=== PATIENT | male | born 1960 | race Caucasian/White ===

== ENCOUNTER 2018-05-23 10:54 | Emergency (ER) | payer MEDICAID ==
[~2018-05-23] VITALS: Ht 177.8 cm; Wt 113.6 kg
[~2018-05-23 10:54] MED LIST: CLONAZEP ODT1 MG PO; HYTRIN2 MG PO; INDERAL60 MG PO; KLONOPIN2 MG PO; LISINOPRIL10 MG PO; LORTAB 1010 MG PO; NIFEDIPINE30 MG PO; PROCARDIA XL30 MG PO; REMERON45 MG PO; SEROQUEL25 MG PO; TRAMADOL HCL E100 M2 PO; TRAMADOL HCL100 MG PO; TRAMADOL HCL50 MG PO; VITAMIN D35000 UNIT PO; XANAX0.5 MG PO; ZANAFLEX4 M2 PO
[2018-05-23] MEDS ORDERED: MELOXICAM7.5 MG PO (11:31)
[2018-05-23 11:48] LABS: URINE BILIRUBIN - DIPSTICK NEGATIVE (NEGATIVE); URINE BLOOD DIPSTICK NEGATIVE (NEGATIVE); URINE COLOR YELLOW; URINE GLUCOSE - DIPSTICK NEGATIVE (NEGATIVE); URINE KETONE NEGATIVE (NEGATIVE); URINE LEUK ESTERASE NEGATIVE (NEGATIVE); URINE NITRITE - DIPSTICK NEGATIVE (Negative); URINE PH 6.5 (4.5-8.0); URINE PROTEIN - DIPSTICK NEGATIVE (NEG-TRACE); URINE SPECIFIC GRAVITY 1.015
[2018-05-23 11:51] LABS: HEMOGLOBIN 15.9 g/dl (14.0-18.0); IMMATURE GRANULOCYTES 0.3 % (0.0-5.0); MEAN CELL VOLUME 100.2 fL CALC (80.0-100.0); MEAN CORPUSCULAR HGB 33.9 pG CALC (26.0-32.0); MEAN CORPUSCULAR HGB CONC 33.8 g/L CALC (32.0-36.0); NEUT# 6.21 thou/uL (1.82-7.42); RED BLOOD COUNT 4.69 mill/uL (4.70-6.10); RED CELL DISTRI WIDTH 13.2 % (11.5-15.5)
[2018-05-23 11:52] LABS: BARBITURATES NEGATIVE (NEGATIVE); COCAINE NEGATIVE (NEGATIVE); METHADONE NEGATIVE (NEGATIVE); OXCYCODONE NEGATIVE (NEGATIVE); TETRAHYDROCANNABIONOL NEGATIVE (NEGATIVE); TRICYLIC ANTIDEPRESSANTS NEGATIVE (NEGATIVE)
[2018-05-23 11:57] LABS: ALBUMIN 3.8 g/dL (3.2-5.0); ALKALINE PHOSPHATASE 82 u/l (38-126); BILIRUBIN, TOTAL 0.8 mg/dL (0.0-1.4); BUN 11 mg/dL (9-20); BUN/CREATININE RATIO 16 (12-20 (CALC)); CARBON DIOXIDE 26 mmol/l (22-30); CHLORIDE 103 mmol/l (95-108); CREATININE 0.7 mg/dL (0.7-1.3); GFR > 60 ML/MIN (>=60 (CALC)); GFR FOR AFR.AMER. > 60 ML/MIN (>=60 (CALC)); LIPASE 127 u/l (23-300); POTASSIUM 3.9 mmol/l (3.5-5.1); SGOT/AST 40 u/l (17-59); TOTAL PROTEIN 6.8 g/dL (6.3-8.2)
[2018-05-23 11:59] LABS: ANION GAP 13 (6-22 (CALC)); SODIUM 138 mmol/l (137-146)
[2018-05-23] MEDS ORDERED: PERCOCET 5/325M1 TAB PO (14:22)
[2018-05-23 14:39] VITALS: BP 172/84
== END 2018-05-23 14:41 | disposition home or self-care (01) ==
LOC: ED 10:54
DX: G89.29 Other chronic pain (principal); R10.84 Generalized abdominal pain; M54.5 Low back pain; I10 Essential (primary) hypertension; F17.200 Nicotine dependence, unspecified, uncomplicated
CPT/HCPCS: Q9967

== ENCOUNTER 2019-02-15 13:35 | Emergency (ER) | payer MEDICAID ==
[~2019-02-15] VITALS: Ht 177.8 cm; Wt 105.0 kg
[~2019-02-15 13:35] MED LIST changes: +MELOXICAM7.5 MG PO; +PERCOCET 5/325M1 TAB PO
[2019-02-15] MEDS ORDERED: CEPHALEXIN500 M1 PO (16:35)
[2019-02-15 16:55] VITALS: BP 198/83
== END 2019-02-15 16:55 | disposition home or self-care (01) ==
LOC: ED 13:35
DX: S61.221A Laceration with foreign body of left index finger without damage to nail, initial encounter (principal); F17.200 Nicotine dependence, unspecified, uncomplicated; W45.8XXA Other foreign body or object entering through skin, initial encounter; Y93.89 Activity, other specified; Y92.002 Bathroom of unspecified non-institutional (private) residence as the place of occurrence of the external cause

== ENCOUNTER 2019-07-08 | Emergency (ER) | payer MEDICAID ==
[~2019-07-08] MED LIST changes: +CEPHALEXIN500 M1 PO
[2019-07-08] MEDS ORDERED: MOTRIN800 MG PO (23:30)
[2019-07-08] MEDS ORDERED: LORTAB 5/3255 MG PO (23:30)
== END 2019-07-08 23:40 | disposition home or self-care (01) ==
DX: S42.252A Displaced fracture of greater tuberosity of left humerus, initial encounter for closed fracture (principal); I10 Essential (primary) hypertension; F17.200 Nicotine dependence, unspecified, uncomplicated; W01.198A Fall on same level from slipping, tripping and stumbling with subsequent striking against other object, initial encounter; Y92.007 Garden or yard of unspecified non-institutional (private) residence as the place of occurrence of the external cause

== ENCOUNTER 2019-07-16 | Emergency (ER) | payer MEDICAID ==
[~2019-07-16] MED LIST changes: +LORTAB 5/3255 MG PO; +MOTRIN800 MG PO
[2019-07-16] MEDS ORDERED: HYDROCO/APAP1 TA9 PO (11:29)
== END 2019-07-16 11:49 | disposition home or self-care (01) ==
DX: S42.302A Unspecified fracture of shaft of humerus, left arm, initial encounter for closed fracture (principal); I10 Essential (primary) hypertension; F17.210 Nicotine dependence, cigarettes, uncomplicated; W19.XXXA Unspecified fall, initial encounter

== ENCOUNTER 2021-01-02 08:00 | Inpatient (IN) | payer MEDICAID ==
[~2021-01-02] VITALS: Ht 177.8 cm; Wt 99.0 kg
[~2021-01-02 08:00] MED LIST changes: +HYDROCO/APAP1 TA9 PO
--- NOTE | 2021-01-02 08:00 | NUR ---
PATIENT TO ROOM VIA EMS STRETCHER.
[2021-01-02 09:00] LABS: HEMATOCRIT 47.2 % (39.0-50.0); HEMOGLOBIN 16.4 g/dl (14.0-18.0); IMMATURE GRANULOCYTES 2.9 % (0.0-5.0); MEAN CELL VOLUME 94.4 fL CALC (80.0-100.0); MEAN CORPUSCULAR HGB 32.8 pG CALC (26.0-32.0); MEAN CORPUSCULAR HGB CONC 34.7 g/dL CAL (32.0-36.0); NEUT# 19.72 thou/uL (1.82-7.42); RED CELL DISTRI WIDTH 13.7 % (11.5-15.5)
[2021-01-02 09:18] LABS: CREATININE 0.8 mg/dL (0.7-1.3); GFR > 60 ML/MIN (>=60 (CALC)); GFR FOR AFR.AMER. > 60 ML/MIN (>=60 (CALC)); POTASSIUM 3.4 mmol/l (3.5-5.1)
[2021-01-02 09:30] LABS: MYOGLOBIN 134 ng/mL (0 - 121)
[2021-01-02 09:31] LABS: ALKALINE PHOSPHATASE 163 u/l (38-126); ANION GAP 7 (6-22 (CALC)); BILIRUBIN, TOTAL 3.4 mg/dL (0.0-1.4); BUN 27 mg/dL (8-23); BUN/CREATININE RATIO 34 (12-20 (CALC)); CARBON DIOXIDE 34 mmol/l (22-30); CHLORIDE 78 mmol/l (95-108); SGOT/AST 93 u/l (19-48)
[2021-01-02 09:32] LABS: SODIUM 116 mmol/l (137-146)
[2021-01-02 09:50] LABS: URINE BLOOD DIPSTICK NEGATIVE (NEGATIVE); URINE GLUCOSE - DIPSTICK 100 mg/dL (NEGATIVE); URINE KETONE NEGATIVE (NEGATIVE); URINE LEUK ESTERASE NEGATIVE (NEGATIVE); URINE PROTEIN - DIPSTICK NEGATIVE (NEG-TRACE); URINE UROBILINOGEN - DIPSTICK >=8.0 E.U./dL (0.2)
[2021-01-02 09:54] LABS: URINE BILIRUBIN - DIPSTICK MODERATE (NEGATIVE); URINE COLOR DK. YELLOW; URINE NITRITE - DIPSTICK NEGATIVE (Negative)
[2021-01-02] MEDS ORDERED: ATORVASTATIN CA40 MG PO (13:38)
[2021-01-02] MEDS ORDERED: ALPRAZOLAM0.5 MG PO (13:38)
[2021-01-02] MEDS ORDERED: LISINOP/HCTZ1 TA1 PO (13:39)
[2021-01-02] MEDS ORDERED: NIFEDIPINE ER30 M1 PO (13:40)
[2021-01-02] MEDS ORDERED: TAMSULOSIN HCL0.4 MG PO (13:40)
[2021-01-02] MEDS ORDERED: LOPRESSOR50 M1 PO (13:40)
--- NOTE | 2021-01-02 14:55 | NUR ---
ATTEMPT TO CALL REPORT TO FLOOR
--- NOTE | 2021-01-02 15:52 | NUR ---
SECOND CALL TO FLOOR
--- NOTE | 2021-01-02 16:06 | NUR ---
REPORT REC FROM INDRA MOODY
--- NOTE | 2021-01-02 16:20 | NUR ---
THIRD CALL TO FLOOR REPORT GIVEN.
--- NOTE | 2021-01-02 16:32 | NUR ---
PT ARRIVED VIA STRETCHER ACCOMPANIED BY Ben CAMPOS RN. PT A&O. C/O OF GENERALIZED PAIN "ALL OVER". PT UNABLE TO MOVE ONTO BED, PT X5 PEOPLE ASSIST TO BED. STATES WEAKNESS HAS INCREASED OVER THE PAST COUPLE WEEKS. PT LIVES ALONE WITH DOG; STATES MOBILITY HAS DECREASED WHERE HE HAS BEEN USING A "STRING" TO OPEN DOORS. OATES CATHETER IN PLACE, REDNESS/SWELLING TO SCROTUM WITH LULY COLORED URINE DRAINING VIA GRAVITY. PT REPORTS NO BM IN THE PAST "MAYBE 2 WKS". ACTIVE BOWEL SOUNDS X4 QUADRANTS. #20G RAC HEALTHY AND PATENT WITH IVF WITH NS @100 ML/HR. WEAK PEDAL PULSES. ASSESSMENT COMPLETED. DISCUSSSED POC. CALL LIGHT WITHIN REACH. SIDE RAILS PADDED DUE TO CRITICAL HYPONATREMIA RESULT OF 116.
[2021-01-02 16:48] VITALS: BP 98/51
--- NOTE | 2021-01-02 18:41 | NUR ---
VOMITING EPISODE X1. PT C/O OF "EXCRUCIATING PAIN ALL OVER" AND SAYING "OH GOD, I NEED SOMETHING FOR PAIN, TURN ME TO MY LEFT SIDE", EXPLAINED TO THE PT THAT I WAS NOT ABLE TO GIVE HIM PAIN MEDICATIONS UNTIL I REC ORDERS FROM THE PHYSICIAN, AND FOLLOWED PROTOCOLS. PT PLACED ON TO LT SIDE PER HIS REQUEST. DR MCKEON NOTIFIED. AWAITING ORDERS.
[2021-01-02 19:55] VITALS: BP 106/70
--- NOTE | 2021-01-02 20:30 | NUR ---
PT HAS FREQUENT NEEDS AND IS AGITATED; C/O 10/10 GENERALIZED PAIN; REPORTS EMESIS WITH ANY FOOD OR DRINK, BUT ALSO REQUESTING SODA. TORADOL, TYLENOL, ZOFRAN, AND MILK OF MAGNESIA GIVEN AT THIS TIME. RESPIRATIONS EVEN AND UNLABORED ON ROOM AIR. CALL LIGHT WITHIN REACH.
--- NOTE | 2021-01-02 22:34 | NUR ---
RECEIVED REORT FROM MAYE MOODY.
[2021-01-03] VITALS (7 sets, daily range): BP systolic 90–116; BP diastolic 54–69
--- NOTE | 2021-01-03 01:22 | NUR ---
IVABT INFUSING. PATIENT RESTING WITH EYES CLOSED. REPIRATIONS EVEN AND UNLABORED. BED IN LOW POSITION. CALL LIGHT WITHIN REACH.
--- NOTE | 2021-01-03 02:05 | NUR ---
TYLENOL GIVEN FOR GENERALIZED PAIN.
--- NOTE | 2021-01-03 04:28 | NUR ---
MEDICATED PATIENT FOR PAIN. TORADOL 15 MG IV GIVEN.
[2021-01-03 05:26] LABS: IMMATURE GRANULOCYTES 4.6 % (0.0-5.0); MEAN CELL VOLUME 95.3 fL CALC (80.0-100.0); MEAN CORPUSCULAR HGB 33.3 pG CALC (26.0-32.0); NEUT# 14.36 thou/uL (1.82-7.42); RED BLOOD COUNT 4.05 mill/uL (4.70-6.10); RED CELL DISTRI WIDTH 14.2 % (11.5-15.5)
[2021-01-03 05:29] LABS: HEMATOCRIT 38.6 % (39.0-50.0); HEMOGLOBIN 13.5 g/dl (14.0-18.0)
[2021-01-03 05:36] LABS: ALKALINE PHOSPHATASE 110 u/l (38-126); BUN 29 mg/dL (8-23); BUN/CREATININE RATIO 40 (12-20 (CALC)); CREATININE 0.7 mg/dL (0.7-1.3); GFR > 60 ML/MIN (>=60 (CALC)); GFR FOR AFR.AMER. > 60 ML/MIN (>=60 (CALC)); POTASSIUM 2.9 mmol/l (3.5-5.1); SGOT/AST 79 u/l (19-48)
[2021-01-03 06:00] LABS: ALBUMIN 1.9 g/dL (3.2-5.0); ANION GAP 7 (6-22 (CALC)); CARBON DIOXIDE 26 mmol/l (22-30); CHLORIDE 89 mmol/l (95-108); SODIUM 119 mmol/l (137-146); TOTAL PROTEIN 4.8 g/dL (6.3-8.2)
--- NOTE | 2021-01-03 07:33 | NUR ---
VANCOMYCIN ORDERED FOR PHARMACY TO DOSE. PT PRESENTED WITH CELLULITIS. PRELIMINARY BLOOD CX ALSO SHOWS GRAM POSITIVE COCCI IN 4/4 BOTTLES. SCR = 0.8, CRCL = 122.3. START VANCOMYCIN 1250MG IV Q8H. WILL CHECK TROUGH TODAY PRIOR TO 4TH DOSE @1330. PHARMACY WILL CONTINUE TO FOLLOW
--- NOTE | 2021-01-03 08:12 | NUR ---
PATIENT LAYING IN BED AT THIS TIME NEURO CHECK DONE AND REMAINS NEGATIVE AT THIS TIME. PATIENT CAN MOVE LIMBS WHEN PROMPTED. PATINET STATES HIS PAIN IS A 3 AT THIS TIME PATIENT WAS PREVIOUSLY MEDICATED. SIDERRAILS ARE UP AND PADDED OATES PATENT AND DRAINING CLEAR YELLOW URINE AT THIS TIME. TELE ON AND BEING MONITORED BY ED.
--- NOTE | 2021-01-03 10:35 | NUR ---
PATIENT LAYING IN BED ENCOURAGED TO MOVE AND REFUSING STATING "HIS COLLAR BONE IS BROKEN" WHEN EXPLAINED HE HAS NO BROKEN COLLAR BONE PATIENT STATED "I BROKE IT YEARS AGO" PATIENT STATES I CAN'T MOVE MY ARMS' PATIENT LIFTS PHONE TO MAKE A PHONE CALL. PATIENT OFFERED TYLENOL AT THIS TIME AND PATIENT STATED "NO" I WANT "MORPHINE AND LOTS OF IT". PATIENT REMINDED HE HAS NO ORDER FOR "MORPHINE" AT THIS TIME. PATIENT STATES "I LIKE MORPHINE" ITS THE ONLY THING THAT HELPS ME. PATIENT ALSO REMINDED THAT HE NEEDS TO GET UP OUT OF BED AND PATIENT STATE "NO" I DON'T WANT TO.
--- NOTE | 2021-01-03 11:52 | NUR ---
PRELIM BLOOD CX SHOWS GRAM POSITIVE COCCI IN 4/4. REPORTED TO DR MCKEON. ALREADY ON VANCOMYCIN. WILL F/U WITH FINAL
--- NOTE | 2021-01-03 12:26 | NUR ---
PATIENT UP IN CHAIR AT THIS TIME. PATIENT MEDICATED WITH 15MG OF TORODOL IV AND 650MG OF TYLENOL FOR A PAIN OF "6" ON PAIN SCALE. OATES PATENT AND DRAINING TEA COLOR URINE AT THIS TIME. CALL LIGHT WITHIN REACH.
--- NOTE | 2021-01-03 14:27 | NUR ---
S: ANSHUL RODRIGUEZ is a 60 M who presents with cellulitis and gram positive cocci bacteremia. All medications in patient's chart were reviewed. O: W 113.6 kg, HT 70 in, Scr 0.7 mg/dl, CrCl 155.2 ml/min Vancomycin trough 01/03 @ 1330 = 20 mcg/ml A: Blood culture shows gram positive cocci in 4/4 vials. P: Patient is on Zosyn 3.375g IV q6h. Vancomycin ordered for pharmacy to dose. Change vancomycin to 1g IV Q8H. Vancomycin trough is drawn before the 4th dose on 01/04 @ 1530. Vancomycin goal trough is between 15-20 mcg/ml. Pharmacy will follow and or advise on antibiotics use as needed.
--- NOTE | 2021-01-03 16:02 | NUR ---
PATIENT LAYING IN BED ON TELE PHONE AT THIS TIME. PATIENT STATES HIS PAIN LEVEL IS A "3" OUT OF THE PAIN SCALE OF 0-10. PATIENT SIDERAILS ARE PADDED AT THIS TIME. PATIENT TELE MONITOR ON AND BEING MONITORED BY ED. CALL LIGHT AND PERSONAL BELONGING WITHIN REACH.
--- NOTE | 2021-01-03 18:37 | NUR ---
PATIENT MEDICATED WITH 5MG OF ROXICODONE AT THIS TIME FOR PAIN OF 6 AT THIS TIME. WILL CONTINUE TO MONITOR.
--- NOTE | 2021-01-03 20:00 | NUR ---
PATIENT RESTING IN BED AT THIS TIME-AWAKE ALERT AND ORIENTED X3 WITH MULTIPLE REQUESTS AND COMPLAINTS. PATIENT WITH CONCERNS REGUARDING HIS CURRENT CONDITION AND WANTS TO KNOW HOW SERIOUS HIS ILNESS IS. CONCERNS ABOUT HIS LIVER BECAUSE HE STATES THAT HE DOES DRINK ETOH DAILY. WHEN ASKED WHEN HE LAST DRANK HE STATES THAT IT HAS BEEN SEVERAL DAYS. ENCOURAGED PATIENT TO CONSIDER QUITTING ETOH DUE TO ELEVATION OF HIUS LIVER ENZYMES. OATES PATENT AND DRAINING DARK LULY URINE. IVF NS PATENT AND INFUSING VIA RAC SITE AT 125CC/HR. ABD GROSSLY DISTENED BUT SOFT WITH ACTIVE BS. STATES THAT HE IS PASSING FLATUS BUT NO BM FOR "13 DAYS". LUNGS ARE CLEAR. NO PERIPHERAL EDEMA NOTED.LEFT HAND IS RED AND SWOLLEN-ENCOURAGED TO KEEP ELEVATED ON PILLOWS. SAFETY PRECAUTIONS REINFORCED. CALL LIGHT IN REACH.WILL CONT TO MONITOR.
[2021-01-04 00:34] VITALS: BP 136/73
--- NOTE | 2021-01-04 00:58 | NUR ---
PATIENT RESTING IN BED AT THIS TIME, TELE MONITOR IN PLACE. PATIENT REPEATING SAME QUESTIONS OVER AND OVER AGAIN. CONT TO REASSURE PATIENT AND ANSWERING PATIENT. VANCO INFUSING ORDERED VIA RAC SITE. PATIENT MEDICATED WITH ROXICODONE IR ORDERED FOR 10/10 GENERALIZED PAIN. LEFT HAND IS RED AND SWOLLEN-ENCOURAGED PATIENT TO KEEP LEFT HAND ELEVATED. SAFETY PRECAUTIONS REINFORCED. CALL LIGHT IN REACH. WILL CONT TO MONITOR.
--- NOTE | 2021-01-04 01:34 | NUR ---
PATIENT RESTING IN BED-C/O "BURNING UP INSIDE". TEMP 97.3. PATIENT ASKING FOR HELP POURING HIS OWN WATER. STATES THAT HE HAS HIS NEIGHBOR DO IT FOR HIM AT HOME. ENCOURAGED PATIENT TO MAINTAIN HIS OWN INDEPENDANCE. TELE MONITOR IN PLACE. IVF NS PATENT AND INFUSING VIA RAC SITE AT 125CC/HR. CALL LIGHT IN REACH. WILL CONT TO MONITOR.
[2021-01-04 04:28] VITALS: BP 137/82
--- NOTE | 2021-01-04 04:30 | NUR ---
PATIENT RESTING IN BED AT THIS TIME-ASKING FOR MORE TO DRINK-EXPLAINED TO THE PATIENT THAT HE NEEDS TO LIMIT HIS ORAL INTAKE OF FLUIDS DUE TO HIS HYPONATREMIA. PATIENT STATES THAT HE HAS TO HAVE MORE TO DRINK-THIS IS KILLING HIM. AGAIN ATTEMPTED TO EXPLAIN TO THE PATIENT THE CONCEPT OF FLUID RESTRICTION TO CORRECT HYPONATREMIA. TELE MONITOR IN PLACE. IVF PATENT AN DINFUSING AT 125CC/HR ORDERED. CALL LIGHT IN REACH. WILL CONT TO MONITOR.
[2021-01-04 05:44] LABS: HEMATOCRIT 43.5 % (39.0-50.0); HEMOGLOBIN 14.6 g/dl (14.0-18.0); MEAN CELL VOLUME 98.6 fL CALC (80.0-100.0); MEAN CORPUSCULAR HGB 33.1 pG CALC (26.0-32.0); MEAN CORPUSCULAR HGB CONC 33.6 g/dL CAL (32.0-36.0); NEUT# 20.03 thou/uL (1.82-7.42); RED BLOOD COUNT 4.41 mill/uL (4.70-6.10); RED CELL DISTRI WIDTH 14.5 % (11.5-15.5)
[2021-01-04 05:48] LABS: IMMATURE GRANULOCYTES 6.6 % (0.0-5.0)
[2021-01-04 06:02] LABS: ANION GAP 11 (6-22 (CALC)); BUN 24 mg/dL (8-23); BUN/CREATININE RATIO 34 (12-20 (CALC)); CARBON DIOXIDE 25 mmol/l (22-30); CHLORIDE 92 mmol/l (95-108); CREATININE 0.7 mg/dL (0.7-1.3); GFR > 60 ML/MIN (>=60 (CALC)); GFR FOR AFR.AMER. > 60 ML/MIN (>=60 (CALC)); POTASSIUM 3.7 mmol/l (3.5-5.1); SODIUM 124 mmol/l (137-146)
--- NOTE | 2021-01-04 07:15 | NUR ---
REPORT RECEIVED FROM HEIDY HARGROVE
[2021-01-04 08:35] VITALS: BP 119/69
--- NOTE | 2021-01-04 08:35 | NUR ---
PT MEDICATED WITH PRN ROXICODONE 5MG PO FOR GENERALIZED PAIN RATING 10/10 ON THE PAIN SCALE,WILL CONTINUE TO MONITOR FOR EFFECTIVENESS
--- NOTE | 2021-01-04 08:35 | NUR ---
PT RESTING IN SEMI FOWLERS POSITION,A&O X3;VS OBTAINED AND ASSESSMENT COMPLETED;PT REPORTS GENERALIZED PAIN UNRELIVED BY PRN LATAICODONE, NOTIFIED AND NO NEW ORDERS RECEIVED AT THIS TIME;RESPIRATIONS EVEN AND UNLABORED ON RA;ABDOMEN DISTENDED/SOFT ON PALPATION AND ACTIVE IN ALL 4 QUADRANTS;OATES CATHETER NOTED DRAINING LULY URINE TO GRAVITY WITH EASE;WEAK PEDAL PULSES;SKIN INTACT,SLIGHT REDDENING NOTED TO LEFT HAND;LEFT HAND ELEVATED ON A PILLOW;TELE MONITORING IN PLACE;#20G TO RAC INFUSING NS @ 125ML/HR,SITE APPEARS HEALTHY;PT DENIES ANY ADDITIONAL NEEDS AND IS ENCOURAGED TO CALL FOR ASSISTANCE IF NEEDED;FALL PRECAUTIONS IN PLACE WITH BED IN THE LOWEST POSITION AND CALL LIGHT IN REACH;WILL CONTINUE TO MONITOR
[2021-01-04 10:56] VITALS: BP 107/52
--- NOTE | 2021-01-04 12:20 | NUR ---
PT RESTING IN SEMI FOWLERS POSITION;RESPIRATIONS EVEN AND UNLABORED ON RA;IV FLUIDS INFUSING WITH EASE PER ORDER;TELE MONITORING IN PLACE;OATES CATHETER DRAINING TO GRAVITY WITH EASE;ALL SAFETY PRECAUTIONS IN PLACE WITH CALL LIGHT IN REACH;WILL CONTINUE TO MONITOR
--- NOTE | 2021-01-04 12:31 | NUR ---
AT BEDSIDE DISCUSSING POC.
--- NOTE | 2021-01-04 14:08 | NUR ---
PT MEDICATED WITH PRN ROXICODONE 5MG PO FOR GENERALIZED PAIN RATING 10/10 ON THE PAIN SCALE,WILL CONTINUE TO MONITOR FOR EFFECTIVENESS
--- NOTE | 2021-01-04 15:25 | NUR ---
PT RESTING IN SEMI FOWLERS POSITION;RESPIRATIONS EVEN AND UNLABORED ON RA;TELE MONITORING IN PLACE;IV SITE PATENT INFUSING NS WITH EASE PER ORDER;OATES CATHETER DRAINING TO GRAVITY;ALL SAFETY PRECAUTIONS REMAIN IN PLACE WITH CALL LIGHT IN REACH;WILL CONTINUE TO MONITOR
[2021-01-04 15:58] VITALS: BP 122/69
[2021-01-04 18:00] VITALS: BP 137/77
--- NOTE | 2021-01-04 19:46 | NUR ---
PATIENT SITTING ON THE SIDE OF THE BED AT THIS TIME EATING SMALL AMT OF HER DINNER TRAY. AWAKE ALERT AND ORIENTED WITH NO COMPLAINTS AT THIS TIME. IVF NS PATENT AND INFUSING VIA RIGHT UPPER ARM PICC AT 100CC/HR. SITE IS HEALTHY AT THIS TIME. SAFETY PRECAUTIONS REINFORCED. CALL LIGHT IN REACH. WILL CONT TO MONITOR.
--- NOTE | 2021-01-04 20:24 | NUR ---
PATIENT RESTING IN BED AT THIS TIME-AWAKE ALERT AND ORIENTEDX3. PATIENT WITH MULTIPLE COMPLAINTS INCLUDING GENERALIZED PAIN OF 10/10-BACK, NECK, HEAD ECT. MEDICATED WITH ROXICODONE 5MG PO ORDERED FOR PAIN. PATIENT WITH DISTENDED SOFT ABD. NO BM IS SEVERAL DAYS-MEDICATED WITH [id number] PO. ABD IS SOFT WITH BS+. LUNGS ARE CLEAR. OATES IS PATENT AND DRAINING LULY URINE. IVF NS PATENT AND INFUSING VIA LAC AT 125CC/HR. PATIENT CONT TO ASK FOR FREUQUET PO FLUIDS. EXPLAINED TO PATIENT THAT HIS THRIST IS RELATED TO HIS HYPONATREMIA STATUS BUT NOT VERY SUCCESSFUL WITH UNDERSTANDING THE DX AND FLUID RESTRICTIONS TO CORRECT THE PROBLEM. LEFT HAND SWELLING AND REDNESS IS IMPROVED. REMAINS ELEVATED ON PILLOW. TELE MONITOR IN PLACE-LAST READING SR-80'[id number]. SAFETY PRECAUTIONS REINFORCED. CALL LIGHT IN REACH. WILL CONT TO MONITOR.
--- NOTE | 2021-01-04 22:06 | NUR ---
PATIENT RESTING IN BED WITH EYES CLOSED. RESPS ARE EVEN AND UNLABORED AT THIS TIME. TELE MONITOR IN PLACE. OATES PATENT AND DRAINING LULY URINE. IVF PATENT AND INFUSING VIA RIGHT AC AT 125CC/HR. CALL LIGHT IN REACH. WILL CONT TO MONITOR.
[2021-01-05] VITALS: BP 133/68
--- NOTE | 2021-01-05 00:50 | NUR ---
PATIENT RESTING IN BED-ASKING ABOUT MORE PAIN MEDS-TOO EARLY AND NOT AVAILABLE AGAIN UNTIL AROUND 0200. NEW IV BAG NS HUNG AND INFUSING AT 125CC/HR VIA RIGHT AC SITE. OATES PATENT AND DRAINING LULY URINE. CALL LIGHT IN REACH. WILL CONT TO MONITOR.
--- NOTE | 2021-01-05 02:31 | NUR ---
PATIENT RESTING IN BED-C/O SEVERE GENERALIZED PAIN ALL OVER-10/10 ON PAIN SCALE-MEDICATED WITH ROXICODONE 5MG PO FOR PAIN. IVF NS PATENT AND INFUSING AT 125CC/HR VIA RAC SITE. OATES PATENT AND DRAINING LULY URINE. TELE MONITOR IN PLACE. CALL LIGHT IN REACH. WILL CONT TO MONITOR,
--- NOTE | 2021-01-05 04:39 | NUR ---
PATIENT RESTING IN BED WITH EYES CLOSED. RESPS ARE EVEN AND UNLABORED. TELE MONITOR IN PLACE. IVF PATENT AND INFUSING VIA LAC SITE. CALL LIGHT IN REACH. WILL CONT TO MONITOR.
[2021-01-05 05:20] VITALS: BP 126/71
[2021-01-05 05:35] LABS: HEMATOCRIT 40.3 % (39.0-50.0); HEMOGLOBIN 13.5 g/dl (14.0-18.0); MEAN CELL VOLUME 98.1 fL CALC (80.0-100.0); MEAN CORPUSCULAR HGB 32.8 pG CALC (26.0-32.0); MEAN CORPUSCULAR HGB CONC 33.5 g/dL CAL (32.0-36.0); NEUT# 18.49 thou/uL (1.82-7.42); RED BLOOD COUNT 4.11 mill/uL (4.70-6.10); RED CELL DISTRI WIDTH 14.8 % (11.5-15.5)
[2021-01-05 05:40] LABS: IMMATURE GRANULOCYTES 10.1 % (0.0-5.0)
[2021-01-05 06:09] LABS: ALKALINE PHOSPHATASE 135 u/l (38-126); ANION GAP 7 (6-22 (CALC)); BILIRUBIN, TOTAL 2.4 mg/dL (0.0-1.4); BUN 16 mg/dL (8-23); BUN/CREATININE RATIO 26 (12-20 (CALC)); CARBON DIOXIDE 24 mmol/l (22-30); CHLORIDE 93 mmol/l (95-108); CREATININE 0.6 mg/dL (0.7-1.3); GFR > 60 ML/MIN (>=60 (CALC)); GFR FOR AFR.AMER. > 60 ML/MIN (>=60 (CALC)); POTASSIUM 4.1 mmol/l (3.5-5.1); SGOT/AST 50 u/l (19-48); SODIUM 121 mmol/l (137-146); TOTAL PROTEIN 5.3 g/dL (6.3-8.2)
--- NOTE | 2021-01-05 07:15 | NUR ---
BEDSIDE REPORT RECEIVED, PT HAS C/O PAIN, WILL MEDICATE SOON PRN MEDICATION AVAILABLE, PT WAS AGREEABLE.
[2021-01-05 07:30] VITALS: BP 120/72
[2021-01-05 10:20] VITALS: BP 135/80
[2021-01-05] MEDS ORDERED: AMOX/K CLAV875 M1 PO (14:16)
--- NOTE | 2021-01-05 14:33 | NUR ---
Patient decides to leave AMA. Multiple attempts made to ecourage patient to remain here for continued treatment. Explained to patient all risks of leaving against medical advice including . Pt verbalized understanding of all risks. Pt also encouraged to return to [facility] at any time, especially if symptoms continue or become worse. Pt verbalized understanding.
--- NOTE | 2021-01-05 15:37 | NUR ---
PT note Attempted eval and patient has left AMA
== END 2021-01-05 14:36 | disposition left against medical advice (07) | DRG 872 ==
LOC: ED 08:00 → ED-I 10:02 → ED 13:00 → MS2 13:01
PROVIDERS: Emergency Medicine; Internal Medicine; ADMIT Internal Medicine; ATTEND Internal Medicine
PROC: 0T9B70Z Drainage of Bladder with Drainage Device, Via Natural or Artificial Opening (ICD-10-PCS; principal; 2021-01-02)
DX: A40.1 Sepsis due to streptococcus, group B (principal); L03.114 Cellulitis of left upper limb; E87.1 Hypo-osmolality and hyponatremia; I10 Essential (primary) hypertension; E78.5 Hyperlipidemia, unspecified; D69.6 Thrombocytopenia, unspecified; N40.0 Benign prostatic hyperplasia without lower urinary tract symptoms; M75.102 Unspecified rotator cuff tear or rupture of left shoulder, not specified as traumatic; M25.532 Pain in left wrist; M25.531 Pain in right wrist; M25.511 Pain in right shoulder; B19.20 Unspecified viral hepatitis C without hepatic coma; F17.200 Nicotine dependence, unspecified, uncomplicated; Z72.89 Other problems related to lifestyle; Z20.822 Contact with and (suspected) exposure to COVID-19
CPT/HCPCS: J3370

== ENCOUNTER 2021-01-06 10:45 | Inpatient (IN) | payer MEDICAID ==
[~2021-01-06] VITALS: Ht 177.8 cm; Wt 99.1 kg
[~2021-01-06 10:45] MED LIST changes: +ALPRAZOLAM0.5 MG PO; +AMOX/K CLAV875 M1 PO; +ATORVASTATIN CA40 MG PO; +LISINOP/HCTZ1 TA1 PO; +LOPRESSOR50 M1 PO; +NIFEDIPINE ER30 M1 PO; +TAMSULOSIN HCL0.4 MG PO
--- NOTE | 2021-01-06 10:45 | NUR ---
PT BROUGHT IN BY EMS, AWAITING ROOM ASSIGNMEHNT.
--- NOTE | 2021-01-06 12:00 | NUR ---
PT ARRIVES TO ROOM # 2 VIA EMS STRETCHER
[2021-01-06 12:38] LABS: HEMATOCRIT 37.1 % (39.0-50.0); HEMOGLOBIN 12.6 g/dl (14.0-18.0); MEAN CELL VOLUME 97.1 fL CALC (80.0-100.0); PLATELET COUNT 125 thou/uL (130-400); RED BLOOD COUNT 3.82 mill/uL (4.70-6.10); RED CELL DISTRI WIDTH 14.4 % (11.5-15.5)
[2021-01-06 12:42] LABS: MANUAL DIFFERENTIAL YES
[2021-01-06 12:51] LABS: ALBUMIN 2.2 g/dL (3.2-5.0); ALKALINE PHOSPHATASE 118 u/l (38-126); ANION GAP 11 (6-22 (CALC)); BILIRUBIN, TOTAL 1.7 mg/dL (0.0-1.4); BUN 21 mg/dL (8-23); BUN/CREATININE RATIO 29 (12-20 (CALC)); CARBON DIOXIDE 21 mmol/l (22-30); CHLORIDE 93 mmol/l (95-108); CREATININE 0.7 mg/dL (0.7-1.3); GFR > 60 ML/MIN (>=60 (CALC)); GFR FOR AFR.AMER. > 60 ML/MIN (>=60 (CALC)); MAGNESIUM 2.3 mg/dL (1.6-2.3); POTASSIUM 4.1 mmol/l (3.5-5.1); SGOT/AST 54 u/l (19-48); SODIUM 120 mmol/l (137-146); TOTAL PROTEIN 5.5 g/dL (6.3-8.2)
[2021-01-06 12:55] LABS: BAND 15 % (0-8)
--- NOTE | 2021-01-06 13:49 | NUR ---
PT REQUESTING PAIN MEDICAITON, DR BRADFORD NOTIFIED.
--- NOTE | 2021-01-06 14:00 | NUR ---
PT MEDICATED FOR PAIN AND IV ABX INITIATED PER ORDER. PT TOLERATING WELL. PROVIDED PO FLUIDS PER ORDER OF DR BRADFORD.
--- NOTE | 2021-01-06 15:00 | NUR ---
PT RESTING ON STRETCHER WITH EYES OPEN. PT REQUESTING OATES CATH, STATES " THEY HAD A OATES IN ME UPSTAIRS BECAUSE I CANT STAND TO PEE." DISCUSSED WITH EDP, NO ORDER FOR OATES.
--- NOTE | 2021-01-06 16:20 | NUR ---
PT MEDICATED PER ORDER. PT TOLERATED WELL. OATES CATH ORDER RECEIVED FROM EDP. KASSY MOODY BEDSIDE AND OATES PLACED. PT TOLERATED WELL. DARK COLORED BROWN URINE RETURNED. PT CLEANED OF DRIED STOOL ON LOWER EXTREMITES AND GENITAL AREA. WARM BLANKETS PROVIDED. REVERBERATORY FURNACE OPERATOR IN PLACE.
[2021-01-06 18:13] VITALS: BP 150/67
[2021-01-06 20:05] VITALS: BP 145/70
[2021-01-06 20:28] VITALS: BP 203/84
--- NOTE | 2021-01-06 22:26 | NUR ---
PATIENT ALERT, VERBAL WITH CONFUSION, ABLE TO MAKE NEEDS KNOWN--INAPPROPRIATE AT TIMES--REDIRECTION PROVIDED WHEN NEEDED--PERIODS OF EXTREME CONFUSION ALONG WITH PERIODS OF LUCIDITY WELL--NEEDS ANTICIPATED AND MET PER STAFF. TOLERATED MEDS WELL WHOLE--YET MAY NEED CRUSHED IN THE FUTURE--HAD A HARD TIME WITH SOME PILLS. OATES PATENT AND DRAINING TEA COLORED URINE TO BSB WITHOTUT DIFFICULTY. INC OF BOWEL--CARE PROVIDED PRN. TOTAL CARE WITH ALL ADLS. MEDICATED AT HS WITH PRN TYLENOL WELL PRN XANAX TO AID IN SLEEP TONIGHT. 02 PLACED @ 3L/MIN BN--PATIENT NOTED TO BE HAVING SOME LABORED BREATHING WHILE TRYING TO SLEEP. TELEMETRY MONITORING IN PLACE. WILL CONT TO MONITOR FOR ANY FURTHER CHANGES.
--- NOTE | 2021-01-06 23:21 | NUR ---
PATIENT'S ACTUAL ADMISSION ASSESSMENT COMPLETED AT 8:15PM.
[2021-01-07] VITALS: BP 132/56
--- NOTE | 2021-01-07 00:05 | NUR ---
ASSESSMENTS COMPLETED, SEE DOCUMENTATION. PT C/O GENERALIZED PAIN, ADVISED PT THAT HE HAS TYLENOL ORDERED. WILL MONITOR FOR THE EFFECTIVENESS OF TYLENOL ADMINSTERED ON PREVIOUS SHIFT. GAVE PT SOME SODA AND 1/2 TURKEY SANDWICH WITH PUDDING. PT TOLERATED WELL. WILL MONITOR
[2021-01-07 04:00] VITALS: BP 139/62
--- NOTE | 2021-01-07 04:51 | NUR ---
PT CONTINUES TO REST COMFORTABLY IN BED, NO COMPLAINTS VOICED AT THIS TIME. BREATHING EVEN AND UNLABORED. EDEMA CONTINUES THROUGHOUT. SAFETY PRECAUTIONS REMAIN IN PLACE. NURSE/EXCEL SPECIALIST AT BEDSIDE. WILL MONITOR
--- NOTE | 2021-01-07 07:21 | NUR ---
Patient resting bed, mumbling. Patient answers questions appropriately. FC to BSD with yellow urine. Monitor showws HR 72 and pulse ox 97% on 3L O2 per NC. Patient has edema in all 4 extremities.
[2021-01-07 08:01] LABS: HEMATOCRIT 36.2 % (39.0-50.0); HEMOGLOBIN 12.3 g/dl (14.0-18.0); MEAN CELL VOLUME 97.3 fL CALC (80.0-100.0); MEAN CORPUSCULAR HGB 33.1 pG CALC (26.0-32.0); RED BLOOD COUNT 3.72 mill/uL (4.70-6.10); RED CELL DISTRI WIDTH 14.4 % (11.5-15.5)
--- NOTE | 2021-01-07 09:03 | NUR ---
Patient c/o generalized pain level 10. Requesting pain medicine. Patient very anxious. PRN Tylenol and Xanax po given.
[2021-01-07 09:06] LABS: ANION GAP 8 (6-22 (CALC)); BUN 32 mg/dL (8-23); BUN/CREATININE RATIO 37 (12-20 (CALC)); CARBON DIOXIDE 25 mmol/l (22-30); CHLORIDE 94 mmol/l (95-108); CREATININE 0.9 mg/dL (0.7-1.3); GFR > 60 ML/MIN (>=60 (CALC)); GFR FOR AFR.AMER. > 60 ML/MIN (>=60 (CALC)); MAGNESIUM 2.6 mg/dL (1.6-2.3); POTASSIUM 4.9 mmol/l (3.5-5.1); SODIUM 122 mmol/l (137-146)
--- NOTE | 2021-01-07 10:45 | NUR ---
Dr. Pace and Ottoniel Hoyt APRN at bedside. Patients speech continues to be garbled, however patient does answer questions appropriately. Patient c/o pain especially in left shoulder. Pettichae rash noted on all extremities.
--- NOTE | 2021-01-07 12:00 | NUR ---
Return from CT
--- NOTE | 2021-01-07 12:21 | NUR ---
S: ANSHUL RODRIGUEZ is a 60 M who presents with Cellulitis of hand and bacteremia due to group B Streptococcus. He has a history of Hypertension, Hernia and Hep C. All medications in patient's chart were reviewed. O: VS: BP 137/76 mmHg, P 76bpm, RR 15bpm,T 97.5F W 220kg, HT 70inches, Scr= 0.7mg/dL ,CrCl= 160.7ml/min A: Blood culture is pending. P: Patient is on Zosyn 3.375g IV Q6H. Vancomycin ordered for pharmacy to dose. Start Vancomycin 1g IV Q8H. Vancomycin trough is drawn before the 4th dose on 01/07/21 at 1330. Vancomycin goal trough is between 15-20 mcg/ml. Pharmacy will follow and or advise on antibiotics use as needed.
--- NOTE | 2021-01-07 12:40 | NUR ---
Patient returned from CT suite. Repositioned patient in bed. Patient resting with eyes closed. On 2l O2 per NC, pulse ox 96%.Monitor in place. IV antibiotics running.
[2021-01-07 14:05] VITALS: BP 124/65
--- NOTE | 2021-01-07 15:04 | NUR ---
Bed bath and linen change completed by TRANSMISSION AND PROTECTION ENGINEER. Pt resting quietly in bed. Monitor in place. Pulse ox 100% on O2 2L NC.
--- NOTE | 2021-01-07 16:30 | NUR ---
PT ARRIVED TO FLOOR PER LISA. STATED PT HAD BEEN ORIENTED TO ROOM.
--- NOTE | 2021-01-07 18:33 | NUR ---
SN WENT IN TO PERFORM HEAD TO TOE ASSESSMENT. PT IS ASLEEP. SN CONTINUED PHYSICAL ASSESSMENT BUT COULD NOT ACHEIVE ANY TEACHING. WILL CONTINUE TO MONITOR.
--- NOTE | 2021-01-07 20:00 | NUR ---
PT IN BED RESTING QUIETLY. REPORT RECIVED FROM DAY SHIFT NURSE. PT C/O PAIN TO HIS LEFT SIDE, PT ONLY HAS TYLENOL FOR PAIN CONTROL, WILL CALL MD FOR ORDERS. PT CAN BE LOUD AND DISRUPPTIVE, YELLING DOWN THE PALMA FOR ICE CREAM. PT INDICATED HE DID NOT RECEIVE A DINNER TRAY, UNABLE TO VERIFY AT THIS TIME. PROVIDED PT WITH A 1/2 SANDWICH AND SOME ICE CREAM. O2 REMAINS IN PLACE, VS STABLE AT THIS TIME. BREATHING EVEN AND UNLABORED. ASSESSMENTS COMPLETED, PLEASE REFER TO DOCUMENTATION. SAFETY PRECAUTIONS REMAIN IN PLACE, SIDERAILS X [address], CALL LIGHT WITHIN REACH, BED IN LOWEST POSITION.
--- NOTE | 2021-01-07 20:05 | NUR ---
PT COMPLAINING OF SEVERE PAIN TO LEFT SIDE, REACHED OUT TO PHYSICIAN AND PHYSICIAN STATED, "PT IS MALINGERING. THERE IS NO FOCAL PAIN, NO PATHOLOGY THERE." PT NOTIFIED OF DOCTORS RESPONSE TO PAIN MEDS. OFFERED PT TYLENOL TO WHICH HE IS REFUSING AT THIS TIME. WILL CONTINUE TO MONITOR PT
[2021-01-07 20:34] VITALS: BP 134/72
--- NOTE | 2021-01-08 | NUR ---
PT RESTING COMFORTABLY IN BED. BREATHING IS EVEN AND UNLABORED. NO COMPLAINTS VOICED AT THIS TIME. IV ABT'S ADMINSTERED PER ORDER. PT TOLERATING WELL. SAFETY PRECAUTIONS REMAIN IN PLACE. WILL MONITOR
[2021-01-08 04:00] VITALS: BP 142/80
--- NOTE | 2021-01-08 04:10 | NUR ---
PT HOLLARING DOWN THE PALMA FOR MORE ICE CREAM, HE HAS CONSUMED 4 CONTAINERS OF ICE CREAM THIS SHIFT. ADVISED PT THAT HE IS NOT TO HAVE ANY FURTHER ICE CREAM TONIGHT D/T THE ICE CREAM MAKES HIS SECRETIONS THICK AND HE BECOMES VERY GURGLY IN HIS THROAT. PT CONTINUED TO HOLLAR DOWN THE PALMA AND AT STAFF. PT PROVIDED WITH WATER TO CONSUME. OFFERED PT OTHER FOOD ITEMS TO WHICH HE DECLINED. PT HAS DECREASED HIS OUTBURSTS SINCE NURSING CONVERSATION. SAFETY PRECAUTIONS REMAIN IN PLACE. WILL MONITOR
[2021-01-08 06:01] LABS: HEMATOCRIT 36.1 % (39.0-50.0); HEMOGLOBIN 12.1 g/dl (14.0-18.0); MEAN CELL VOLUME 98.4 fL CALC (80.0-100.0); MEAN CORPUSCULAR HGB CONC 33.5 g/dL CAL (32.0-36.0); NEUT# 12.73 thou/uL (1.82-7.42); RED BLOOD COUNT 3.67 mill/uL (4.70-6.10); RED CELL DISTRI WIDTH 14.3 % (11.5-15.5)
[2021-01-08 06:10] LABS: IMMATURE GRANULOCYTES 12.1 % (0.0-5.0)
[2021-01-08 06:49] LABS: ALBUMIN 2.2 g/dL (3.2-5.0); ALKALINE PHOSPHATASE 104 u/l (38-126); ANION GAP 10 (6-22 (CALC)); BUN 45 mg/dL (8-23); BUN/CREATININE RATIO 40 (12-20 (CALC)); CARBON DIOXIDE 22 mmol/l (22-30); CHLORIDE 97 mmol/l (95-108); CREATININE 1.1 mg/dL (0.7-1.3); GFR > 60 ML/MIN (>=60 (CALC)); GFR FOR AFR.AMER. > 60 ML/MIN (>=60 (CALC)); SGOT/AST 36 u/l (19-48); SODIUM 124 mmol/l (137-146); TOTAL PROTEIN 5.4 g/dL (6.3-8.2)
--- NOTE | 2021-01-08 07:00 | NUR ---
REPORT FROM NETTIE AQUINO. ASSUMED PT CARE.
[2021-01-08 07:10] LABS: BILIRUBIN, TOTAL 0.9 mg/dL (0.0-1.4); C-REACTIVE PROTEIN 13.1 mg/dL (0-0.9)
--- NOTE | 2021-01-08 07:12 | NUR ---
PT CONTINUES TO HOLLAR OUT REQUESTING MORE ICE CREAM. PT NOTED WITH THICK SECRETIONS AND GURGLY WITH EXCESSIVE COUGHING. REPOSITIONED PT UP RIGHT IN BED. O2 @ 3L/M VIA NC. DISCUSSED WITH PT ABOUT SAFETY. ALSO DISCUSSED IF PT WISHED TO HAVE MORE ICE CREAM HE COULD HAVE FAMILY BRING ICE CREAM FROM HOME HOWEVER DUE TO COUGHING AND THICKEN SECRETIONS IT IS NOT ADVISED AT THIS TIME AND WARRARNTS FURTHER EVALUATION FROM PHYSICIAN. PT CONTINUES TO HOLLAR OUT AT STAFF. CALL LIGHT WITHIN REACH. WILL CONTINUE TO MONITOR.
[2021-01-08 07:49] VITALS: BP 137/80
--- NOTE | 2021-01-08 08:53 | NUR ---
PT REFUSED TO GO DOWN TO MRI AT THIS TIME. PT STATES " THERE IS NOTHING WRONG WITH MY HEAD". THREADING MACHINE OPERATOR ATTEMPTED TO EDUCATE PT AT THIS TIME. PT CONTINUES TO REFUSED.
[2021-01-08 09:13] VITALS: BP 137/80
--- NOTE | 2021-01-08 09:37 | NUR ---
Patient received upright in bed on 3L via nasal cannula. Pt with moderately dysarthric speech. Leaning to the left side in bed. Patient reports "I don't have difficulties swallowing," as he was removing large chunks of food from his oral cavity. Patient agreeable to bedside swallow assessment however, pt refusing modified barium swallow study. Patient self-fed PO trials of thin liquids and mechanical soft solids. Pt presented with increased mastication time, oral holding, left buccal cavity pocketing, expectoration of soft solids from his oral cavity, pt only able to swallow soft solids whole using liquid. Patient presented with increased oral transit time, suspected delayed pharyngeal swallow, multiple swallows per bolus presentation, and inconsistent wet vocal quality and coughing s/p swallow of thin liquids. Pt refused to trial other consistencies despite overt s/s of penetration/aspiration at bedside. Discussed patient with VIGNESH Fu. WEB DESIGN INTERN will continue to follow d/t high suspicion for aspiration at this time and poor overall mastication/tolerance of soft solids. Recommendations: Pureed solids and thin liquids Aspiration precautions: HOB upright at 90 degrees for PO intake, small bites and sips, slow rate, remain upright for >30 minutes after PO intake
--- NOTE | 2021-01-08 10:03 | NUR ---
PT FAMILY BROUGHT PT 1 QUART OF ICE CREAM AT THIS TIME. EDUCATED AND ENCOURAGED PT NOT TO EAT ICE CREAM FOR SAFETY CONCERNS FOR ASPIRATIONS, MAINTAINING AIR WAY, AND INCREASED SECRETIONS. PT CONTINUED TO REFUSE EDUCATION AND ATE THE WHOLE QUART OF ICE CREAM. ASPIRATION PRECAUTIONS IN PLACE. HOB ELEVATED AT 90 DEGREES. WILL CONTINUE TO MONITOR.
--- NOTE | 2021-01-08 11:28 | NUR ---
PHYSICIAN AT BEDSIDE TO DISCUSS POC.
--- NOTE | 2021-01-08 12:25 | NUR ---
PT VERY DISPLEASED WITH MEAL AND DIETARY RECOMMENDATION FROM ST. ATTEMPTED TO EDUCATE PT ON SAFETY AND ASPIRATION PRECAUTIONS. PT REFUSED TEACHING AND WISHED TO LEAVE AMA. ENCOURAGED PT TO STAY. INFORMED PHYSICIAN AT THIS TIME. PT SIGNED AMA PAPER AT THIS TIME.
--- NOTE | 2021-01-08 12:40 | NUR ---
OATES CATHETER AND PERIPHERAL IV SITE D/C WITH CATH INTACT. AT THIS TIME UPON REQUEST OF PT. 400ML DARK YELLOW OUTPUT NOTED IN BAG.
--- NOTE | 2021-01-08 14:05 | NUR ---
PT ASSISTED INTO WHEELCHAIR WITH STAND BY ASSIST AND ESCORTED DOWN STAIRS. PT STATES A FRIEND IS PICKING HIM UP. PT LEFT AMA. ASSISTED INTO A NEAL COLORED VAN AT THIS TIME. PT ALERT AND ORIENTED X4. ENCOURAGED TO RETURN IF NEW OR WORSENING SYMPTOMS ARISE. PT STATES HE WILL NO BE BACK.
== END 2021-01-08 14:05 | disposition left against medical advice (07) | DRG 603 ==
LOC: ED 10:45 → ED-I 15:55 → ED 16:36 → ED-I 16:37 → MS2 01-07 17:30
PROVIDERS: Emergency Medicine; Nurse Practitioner; ADMIT Hospitalist; ATTEND Hospitalist
PROC: 0T9B70Z Drainage of Bladder with Drainage Device, Via Natural or Artificial Opening (ICD-10-PCS; principal; 2021-01-06)
DX: L03.113 Cellulitis of right upper limb (principal); E87.1 Hypo-osmolality and hyponatremia; R78.81 Bacteremia; L03.114 Cellulitis of left upper limb; R47.81 Slurred speech; T42.4X5A Adverse effect of benzodiazepines, initial encounter; D69.6 Thrombocytopenia, unspecified; I10 Essential (primary) hypertension; F41.9 Anxiety disorder, unspecified; N40.0 Benign prostatic hyperplasia without lower urinary tract symptoms; R53.1 Weakness; M25.512 Pain in left shoulder; G89.29 Other chronic pain; B19.20 Unspecified viral hepatitis C without hepatic coma; Z79.891 Long term (current) use of opiate analgesic
CPT/HCPCS: J1650; J2060

== ENCOUNTER 2021-01-08 17:37 | Observation (INO) | payer MEDICAID ==
[~2021-01-08] VITALS: Ht 177.8 cm; Wt 99.0 kg
--- NOTE | 2021-01-08 17:37 | NUR ---
TO ROOM VIA EMS FOR BEDSIDE TRIAGE
--- NOTE | 2021-01-08 20:09 | NUR ---
BLADDER SCANNER DONE 75CC OF URINE MD NOTIFY
[2021-01-08 20:10] LABS: HEMATOCRIT 40.8 % (39.0-50.0); HEMOGLOBIN 13.8 g/dl (14.0-18.0); MEAN CELL VOLUME 98.8 fL CALC (80.0-100.0); MEAN CORPUSCULAR HGB 33.4 pG CALC (26.0-32.0); MEAN CORPUSCULAR HGB CONC 33.8 g/dL CAL (32.0-36.0); RED BLOOD COUNT 4.13 mill/uL (4.70-6.10); RED CELL DISTRI WIDTH 14.4 % (11.5-15.5)
[2021-01-08 20:18] LABS: ANION GAP 12 (6-22 (CALC)); BILIRUBIN, TOTAL 1.1 mg/dL (0.0-1.4); BUN 55 mg/dL (8-23); BUN/CREATININE RATIO 47 (12-20 (CALC)); CARBON DIOXIDE 21 mmol/l (22-30); CHLORIDE 97 mmol/l (95-108); CREATININE 1.2 mg/dL (0.7-1.3); GFR > 60 ML/MIN (>=60 (CALC)); GFR FOR AFR.AMER. > 60 ML/MIN (>=60 (CALC)); LIPASE 135 u/l (23-300); SGOT/AST 63 u/l (19-48); SODIUM 126 mmol/l (137-146)
[2021-01-08 20:22] LABS: ALBUMIN 2.9 g/dL (3.2-5.0); ALKALINE PHOSPHATASE 161 u/l (38-126); INTERNATIONAL NORMALIZED RATIO 1.1 RATIO (0.7-1.3); TOTAL PROTEIN 6.9 g/dL (6.3-8.2)
[2021-01-08 20:29] LABS: IMMATURE GRANULOCYTES 14.5 % (0.0-5.0); PLATELET COUNT 161 thou/uL (130-400)
[2021-01-08 20:30] LABS: BAND 5 % (0-8); MANUAL DIFFERENTIAL YES
--- NOTE | 2021-01-08 20:30 | NUR ---
Lab/ Xray Follow-Up Reviewing ED Physician: GREG Elizondo. Primary MD: Reason for the Call: Check on Condition Rx Change/ Advised X Review Tests (Lab, X-Ray, EKG) Ensure follow-up with PMD or referral Return to the ER for a follow-up visit Treatment Change/ Instruction: LACTIC ACIS ELEVATED WBC'S ELEVATED If unable to reach by phone, date letter was sent ER MD NOTIFIED PLEASE SEND A COPY OF LETTER TO MEDICAL RECORDS
--- NOTE | 2021-01-08 21:01 | NUR ---
HEIDY PLACED THE OATES CATHETER BY MD JANE
--- NOTE | 2021-01-08 22:00 | NUR ---
CONSTANTLY NEWSPAPER WRITER LIGHT.
--- NOTE | 2021-01-08 22:01 | NUR ---
PATIENT REFUSED HAVE A CT MD AWARE AND CHARGE NURSE DINORAH
--- NOTE | 2021-01-09 | NUR ---
CONSTANTLY YELLING. NOTED TO POSSIBLY HAVE A SWALLOWING PROBLEM. WHEN DRINKING WATER HAS COUGHING. MADE NPO UNTIL MD SANCHEZ.
--- NOTE | 2021-01-09 02:00 | NUR ---
CONTINUES TO KEEP YELLING.
--- NOTE | 2021-01-09 04:28 | NUR ---
CONTINUES TO KEEP YELLING.
[2021-01-09 04:31] LABS: HEMATOCRIT 35.1 % (39.0-50.0); HEMOGLOBIN 11.9 g/dl (14.0-18.0); MEAN CELL VOLUME 97.8 fL CALC (80.0-100.0); MEAN CORPUSCULAR HGB 33.1 pG CALC (26.0-32.0); MEAN CORPUSCULAR HGB CONC 33.9 g/dL CAL (32.0-36.0); RED BLOOD COUNT 3.59 mill/uL (4.70-6.10); RED CELL DISTRI WIDTH 14.3 % (11.5-15.5)
[2021-01-09 04:44] LABS: ANION GAP 11 (6-22 (CALC)); BUN 48 mg/dL (8-23); BUN/CREATININE RATIO 46 (12-20 (CALC)); CARBON DIOXIDE 23 mmol/l (22-30); CHLORIDE 101 mmol/l (95-108); GFR > 60 ML/MIN (>=60 (CALC)); GFR FOR AFR.AMER. > 60 ML/MIN (>=60 (CALC)); SODIUM 130 mmol/l (137-146)
[2021-01-09 04:46] LABS: POTASSIUM 5.2 mmol/l (3.5-5.1)
--- NOTE | 2021-01-09 05:30 | NUR ---
LINEN CHANGE REPOSITIONED
--- NOTE | 2021-01-09 06:20 | NUR ---
ORAL CARE DONE.
--- NOTE | 2021-01-09 07:15 | NUR ---
FIRST CONTACT WITH PT, PT REQUESTING TO GO HOME. ADMITTING PHYSICIAN NOTIFIED AND STATED PT CAN SIGN OUT AMA. PAPER SIGNED. AWAITING RIDE
--- NOTE | 2021-01-09 08:15 | NUR ---
BREAKFAST TRAY SERVED
--- NOTE | 2021-01-09 09:40 | NUR ---
Patient decides to leave AMA. Multiple attempts made to ecourage patient to remain here for continued treatment. Explained to patient all risks of leaving against medical advice including . Pt verbalized understanding of all risks. Pt also encouraged to return to [facility] at any time, especially if symptoms continue or become worse. Pt verbalized understanding.
[2021-01-09 09:42] VITALS: BP 143/63
== END 2021-01-09 09:40 | disposition left against medical advice (07) | DRG 641 ==
LOC: ED 17:37 → ED-I 22:00 → ED 22:07 → ED-I 22:08
PROVIDERS: Family Medicine; ADMIT Hospitalist; ATTEND Hospitalist
DX: E86.0 Dehydration (principal); D72.829 Elevated white blood cell count, unspecified; E87.1 Hypo-osmolality and hyponatremia; I10 Essential (primary) hypertension; B19.20 Unspecified viral hepatitis C without hepatic coma; F17.200 Nicotine dependence, unspecified, uncomplicated; Z20.822 Contact with and (suspected) exposure to COVID-19